=== PATIENT | male | born 1985 | race Two or more races ===

== ENCOUNTER 2016-08-15 18:43 | Emergency (ER) | payer SELFPAY ==
[2016-08-15 18:55] VITALS: BP 138/90
[2016-08-15] MEDS ORDERED: ONDANSETRON ODT 4 MG TAB.RAPDIS. PO ONE (19:30)
[2016-08-15] MEDS ORDERED: LIDO:MAALOX:DONNATAL 1:1:1 15 ML SINGLE DOSE SWSW ONE (19:30)
[2016-08-15] MEDS ORDERED: ONDA4TAB10 SL (19:35)
[2016-08-15] MEDS ORDERED: FAMO-63 PO (19:35)
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
== END 2016-08-15 19:48 | disposition home or self-care (01) ==
LOC: ER 18:43
DX: A09 Infectious gastroenteritis and colitis, unspecified (principal); R11.2 Nausea with vomiting, unspecified; R53.1 Weakness; F12.10 Cannabis abuse, uncomplicated
CPT/HCPCS: 99283; Q0162